=== PATIENT | female | born 1990 ===

== ENCOUNTER 2017-08-10 14:42 | Emergency (ER) | payer BC ==
[2017-08-10 15:03] VITALS: BMI 27.4
[2017-08-10] MEDS ORDERED: TDAP Vaccine 0.5 mL Syr IM ONE (15:17)
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
[2017-08-10 15:20] VITALS: PULSE 80; RESP 18; TEMP 98.7
[2017-08-10 17:01] VITALS: BP 130/70; O2SAT 99
--- NOTE | 2017-08-10 17:16 | RAD ---
PROCEDURE: Right Wrist Radiographs. Please note: No preliminary interpretation of this examination rendered by emergency department personnel. HISTORY: rt. wrist pain, fall? COMPARISON: None. FINDINGS: BONES: Distal radial fracture without appreciable impaction, angulation or distraction.The finding is marked on the study for review. JOINTS: Normal. No dislocation. SOFT TISSUES: Soft tissue swelling attests to the acuity of the fracture. OTHER FINDINGS: None. IMPRESSION: Nondisplaced common non articular distal right radial fracture. Concordant results with the preliminary interpretation rendered by the emergency department physician procedure.
== END 2017-08-10 17:16 | disposition home or self-care (01) ==
LOC: MERGE 14:42 → ED 14:42
DX: S52.501A Unspecified fracture of the lower end of right radius, initial encounter for closed fracture (principal); S60.512A Abrasion of left hand, initial encounter; W19.XXXA Unspecified fall, initial encounter; Y92.9 Unspecified place or not applicable; M25.531 Pain in right wrist; Z23 Encounter for immunization